=== PATIENT | female | born 1940 | race Caucasian/White ===

== ENCOUNTER → 2017-05-01 | Day surgery (SDC) | payer OTHER, BC ==
[2017-04-24 14:46] VITALS: BMI 23.4
[~2017-05-01] MED LIST: PROPOFOL 20 ML ONE
[2017-05-01 08:21] VITALS: BP 160/97; PULSE 100; TEMP 97.9
--- NOTE | 2017-05-02 16:04 | PATH ---
Surgical Pathology Report Patient Name: DAREK SALAS [facility]. Rec. #: [id number] /Age/Gender: 1940 (Age: 76) / F Account: [id number] Location: [facility]-ENDOSCOPY Taken: 05/01/2017 Received: 05/01/2017 Reported: 05/02/2017 Physicians: Melvin Bull M.D. Specimen(s) Received A: DUODENUM B: ANTRUM Clinical History Preoperative diagnosis: GERD Postoperative diagnosis: Gastritis, GERD, dysphagia Final Diagnosis A. DUODENUM, BIOPSY: DUODENAL MUCOSA WITH NO SIGNIFICANT PATHOLOGIC FINDINGS. B. ANTRUM, BIOPSY: MODERATE CHRONIC ACTIVE GASTRITIS. NUMEROUS H. PYLORI ORGANISMS ARE PRESENT. Electronically Signed Jacki Johnson M.D. Gross Description A. Received in formalin, labeled "duodenum" is a reynolds, irregular portion of soft tissue measuring 0.6 cm. in greatest dimension. The specimen is submitted in toto in one cassette. B. Received in formalin, labeled "antrum" are 2 reynolds, irregular portions of soft tissue averaging 0.3 cm. in greatest dimension. The specimens are submitted in toto in one cassette. 05/01/2017 saudi05/01/2017
== END | disposition home or self-care (01) ==
LOC: FASU-ENDO 08:03
PROVIDERS: ATTEND Internal Medicine Gastroenterology
PROC: 0D748DZ Dilation of Esophagogastric Junction with Intraluminal Device, Via Natural or Artificial Opening Endoscopic (ICD-10-PCS; 2017-05-01)
PROC: 0DB98ZX Excision of Duodenum, Via Natural or Artificial Opening Endoscopic, Diagnostic (ICD-10-PCS; principal; 2017-05-01 08:30)
PROC: 0DB68ZX Excision of Stomach, Via Natural or Artificial Opening Endoscopic, Diagnostic (ICD-10-PCS; 2017-05-01 08:30)
DX: K22.2 Esophageal obstruction (principal); R13.10 Dysphagia, unspecified; K44.9 Diaphragmatic hernia without obstruction or gangrene; K29.50 Unspecified chronic gastritis without bleeding; B96.81 Helicobacter pylori [H. pylori] as the cause of diseases classified elsewhere
CPT/HCPCS: 88305-TC